=== PATIENT | male | born 1975 | race Caucasian/White ===

== ENCOUNTER 2019-10-12 17:07 | Inpatient (IN) | payer SELFPAY ==
--- NOTE | ~2019-10-12 | CT_ITS ---
EXAMINATION: CT abdomen pelvis wo con DATE: 10/12/2019 17:45 INDICATION: Left lower quadrant abdominal pain TECHNIQUE: Computed tomography (CT) of the abdomen and pelvis was performed without intravenous contr ast. The dose-length product was 1054.19 mGy-cm. Automated exposure control and iterative reconstruct ion technique were employed. COMPARISON: None. FINDINGS: Lung bases are unremarkable. No significant pleural or pericardial effusion. Heart size is normal. No significant vascular abnormality. No lymphadenopathy. There is a fat-containing right ingu inal hernia. There is thickening with surrounding phlegmonous change involving the descending colon, compatible wi th acute diverticulitis. No evidence for perforation or abscess. Tiny fat-containing umbilical hernia . No bowel obstruction. No free air or free fluid. The liver, spleen, pancreas, adrenal glands and kidneys are unremarkable. Gallbladder is present. IMPRESSION: 1. Acute uncomplicated diverticulitis descending colon. Reviewed, dictated and finalized at location A.
[2019-10-12 17:13] VITALS: BP 135/94; PULSE 108; RESP 16; TEMP 36.6; O2SAT 99
--- NOTE | 2019-10-12 17:18 | ED.ABDPAIN ---
HPI - Abdominal Pain General Chief Complaint: Abdominal Pain Stated Complaint: Abd Pain Time Seen by Provider: 10/12/19 17:15 Source: patient Mode of arrival: ambulatory Limitations: no limitations History of Present Illness HPI narrative: A 44 y/o male presents to the ED with c/o LLQ ABD pain. Pt states that the LLQ ABD pain started 2 days ago and worsened today. He notes that he has a PMHx of diverticulitis and this feels similar. Pt reports nausea, fever, and blurred vision, but denies vomiting and diarrhea. He has no other complaints at this time. MD elicited complaint: abdominal pain (LLQ) Pertinent past history: diverticulitis Onset (ago): day(s) (2) Pain Consistency: other (Worsening) Location: LLQ Severity: similar to previous episodes Context: confirms history of similar episodes Associated symptoms: nausea, fever and other (Blurred vision) Related Data Home Medications Medication Instructions Recorded Confirmed No Home Medications 10/12/19 10/12/19 Allergies Allergy/AdvReac Type Severity Reaction Status Date / Time ciprofloxacin [From Cipro] Allergy Swelling Verified 10/12/19 17:57 shellfish derived Allergy Swelling Verified 10/12/19 17:57 Review of Systems Review of Systems: All systems reviewed & are unremarkable except as noted in HPI and below Constitutional: Constitutional: Reports fever(s) Eyes: Eyes: Reports blurry vision Gastrointestinal: Gastrointestinal: Reports abdominal pain (LLQ), Denies diarrhea, Reports nausea and Denies vomiting PMFSH Past Medical History Medical History (Updated 10/12/19 @ 18:23 by Seng Carlton DO) Diverticulitis Surgical History Surgical History (Updated 10/12/19 @ 17:35 by Arabella Cm) History of arthroscopic procedure on shoulder Right History of umbilical hernia repair Social History Social History (Updated 10/12/19 @ 17:33 by Arabella Cm) Smoking status: Never smoker Exam Narrative: Exam Narrative: APPEARANCE: No acute distress, nontoxic, resting in bed HEENT: Normocephalic, atraumatic, OMM RESPIRATORY: No respiratory distress, clear to auscultation bilaterally with no rhonchi wheezing or rales CARDIOVASCULAR: RRR s murmur ABDOMINAL: Soft, nondistended, tender palpation left lower quadrant right lower quadrant left upper quadrant, no rebound or guarding MUSCULOSKELETAl: Moves all extremities. No clubbing, cyanosis or edema. NEURO: Awake and alert. Following commands, speech normal, no focal deficits SKIN:: Warm, dry. Normal Color PSYCHIATRIC: Normal affect/mood Course Course Emergency Course: Discussed with EULOGIO Lund presentation work-up. Agrees with admission at this time Discussed with patient and family results of workup and diagnosis. Discussed need for admission. Patient and family understand and agree to current treatment plan Vital Signs Vital signs: Vital Signs Temperature 97.9 F 10/12/19 17:13 Pulse Rate 108 H 10/12/19 17:13 Respiratory Rate 16 10/12/19 17:13 Blood Pressure 135/94 H 10/12/19 17:13 Pulse Oximetry 99 10/12/19 17:13 Temperature 97.9 F 10/12/19 17:13 Pulse Rate 108 H 10/12/19 17:13 Respiratory Rate 16 10/12/19 17:13 Blood Pressure 135/94 H 10/12/19 17:13 Pulse Oximetry 99 10/12/19 17:13 MDM - Abdominal Pain Lab Data Result diagrams: 10/12/19 17:31 10/12/19 17:31 Labs: Lab Results 10/12/19 10/12/19 10/12/19 Range/Units 17:31 17:31 17:31 WBC 10.6 H (4.5-10.0) K/mm3 RBC 5.61 (4.6-6.20) M/mm3 Hgb 15.8 (14.0-18.0) g/dL Hct 45.9 (42.0-52.0) % MCV 81.8 (80-100) fl MCH 28.2 (26-34) pg MCHC 34.4 (32-36) g/dl RDW 13.3 (11.5-14.5) % Plt Count 150 (150-375) k/mm3 MPV 13.2 H (7.4-10.4) fl Immature Gran % (Auto) 0.2 (0-0.5) % Neut % (Auto) 78.1 H (45.5-73.1) % Lymph % (Auto) 13.4 L (18.3-44.2) % [place] % (Auto) 7.0 (2.6-8.5) % Eos % (Auto) 0.9 (0-4.4) % Baso
[2019-10-12 17:44] LABS: Basophils Percent Auto 0.4 % (0.2-1.2); Eosinophils Absolute Auto 0.1 K/mm3 (0-0.3); Eosinophils Percent Auto 0.9 % (0-4.4); Hematocrit 45.9 % (42.0-52.0); Hemoglobin 15.8 g/dL (14.0-18.0); Immature Granulocyte Absolute 0.02 K/mm3 (0.00-0.031); Immature Granulocyte Percent A 0.2 % (0-0.5); Immature Platelet Fraction Pct 20.6 % (0.9-11.2); Lymphocytes Absolute Auto 1.43 K/mm3 (0.9-3.2); Lymphocytes Percent Auto 13.4 % (18.3-44.2); Mean Corpuscular HGB Conc 34.4 g/dl (32-36); Mean Corpuscular Hemoglobin 28.2 pg (26-34); Mean Corpuscular Volume 81.8 fl (80-100); Mean Platelet Volume 13.2 fl (7.4-10.4); Monocytes Absolute Auto 0.7 K/mm3 (0.1-0.6); Neutrophils Absolute Auto 8.3 K/mm3 (1.3-6.7); Neutrophils Percent Auto 78.1 % (45.5-73.1); Platelet Count Result 150 k/mm3 (150-375); Red Blood Count 5.61 M/mm3 (4.6-6.20); Red Cell Distribution Width 13.3 % (11.5-14.5); White Blood Count 10.6 K/mm3 (4.5-10.0)
[2019-10-12 17:45] LABS: Add Urine Microscopic? YES; Appearance Urine Clear (Clear); Bilirubin Urine Negative (Negative); Blood Urine Negative (Negative); Color Urine Yellow (Yellow); Glucose Urine UA Negative (Negative); Ketones Urine Trace mg/dL (Negative); Leukocyte Esterase Ur Negative LEU/UL (Negative); Mucus Urine Rare /lpf; Nitrate Urine Negative (Negative); Protein Urine Negative (Negative); RBC Urine 0-2 /hpf (0-2); Urobilinogen Urine Negative mg/dL (<2.0); WBC Urine 0-3 /hpf
[2019-10-12 17:52] LABS: Prothrombin Time 12.7 Seconds (11.1-14.7)
[2019-10-12 17:53] LABS: Alanine Aminotransferase 25 U/L (4-50); Albumin Level 4.9 g/dL (3.5-5.1); Alkaline Phosphatase 69 U/L (38-126); Aspartate Amino Transferase 26 U/L (17-59); Bilirubin,Total 0.8 mg/dL (0.2-1.3); Blood Urea Nitrogen 13 mg/dL (9-20); Calcium 9.7 mg/dL (8.4-10.2); Carbon Dioxide 24 mmol/L (22-30); Chloride 102 mmol/L (98-107); Estimated CRCL calculation 118 ml/min; Estimated Glomerular Filt Rate > 60; Glucose 98 mg/dL (75-110); Lipase 439 U/L (23-300); Potassium 3.8 mmol/L (3.4-5.0); Sodium 137 mmol/L (137-145)
[2019-10-12 17:54] LABS: Lactic Acid Reflex 0.8 mmol/L (0.7-2.1)
[2019-10-12] MEDS: KETOROLAC 30 MG/ML VIAL (*BKC) IV PUSH (17:59)
[2019-10-12] MEDS: ONDANSETRON INJ 4 MG/2 ML VIAL IV PUSH (17:59)
[2019-10-12 18:00] LABS: Partial Thromboplastin Time 28.9 SECONDS (22.3-36.8)
[2019-10-12] MEDS: LACTATED RINGERS 1,000 ML 999 ML IV CONT (18:00)
[2019-10-12] MEDS: LACTATED RINGERS 1,000 ML 125 ML IV CONT (18:58)
[2019-10-12] MEDS: MORPHINE SULFATE 4 MG/ML INJ IV PUSH ×3 (18:58→23:05)
[2019-10-12 19:50] VITALS: BP 146/93; PULSE 71; RESP 18; TEMP 36.7; O2SAT 98; BMI 29.0
[2019-10-12 19:53] VITALS: BP 118/82; PULSE 62; RESP 18; O2SAT 99
--- NOTE | 2019-10-12 20:00 | ADMGEN ---
This patient, Ernie Sparks, was admitted to [facility] Room 329-01. Patient/family oriented to hospital policies and general routines including ID bracelet, bed and alarms, visiting hours, pain management, procedures, bathroom and other care routines, personal items, smoking policy, room service/diet, and visiting hours. Valuables list has been completed. Information on how to activate the Rapid Response Team has been discussed. Patient/Family are encouraged to report perceived risks to care and to ask questions if they do not understand what they are told or what they should do.
[2019-10-12 22:00] VITALS: BP 126/76; PULSE 62; RESP 18; TEMP 36.6; O2SAT 97
--- NOTE | 2019-10-13 00:05 | PM.IMHP ---
H&P: HPI History of Present Illness Chief complaint: Abdominal pain Narrative: Date and time of patient contact: 10/13/2019 just after midnight Ernie Sparks is a 44 year old male with a past medical history of bilateral inguinal hernia repair and multiple episodes of diverticulitis who presented to the ER via private vehicle for diverticulitis. The patient is currently traveling from [place] through [place] on his way to [place], [place] to recall locate and find a new job. He states that he began having pain 2 days ago. His pain is in his lower abdomen and is dull and burning in sensation and is similar to his prior episodes of diverticulitis.. It is currently a 7/10 in intensity. The pain will occasionally be sharp and stabbing crampy. It is made worse with walking or movement. He reports some mild decreased appetite. He has had some mild nausea but no vomiting. He has had some subjective fever with chills and sweats. He has not noticed any hematochezia or melena. He has had normally formed bowel movements with his last bowel movement was today and was normally formed. He denies any hematochezia or melena. The patient's last episode of diverticulitis was about a year ago. He has had a total of fiber 6 episodes of diverticulitis over the last 10 years or so. He reports that he has noticed more foods cause him to be gassy or bloated. He does take a probiotic. He also takes Metamucil on a daily basis. He has been trying to eat a higher fiber diet. 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 He reports that he needs to have a shoulder replacement but the surgeons do not on perform the surgery due to his age. Review of Systems Review of Systems: Narrative: Except as documented in the HPI, all other systems were reviewed and are negative. [facility] Past Medical History Medical History (Updated 10/13/19 @ 00:47 by Tia Lamas DO) Diverticulitis Kidney stones Psoriasis Surgical History Surgical History (Updated 10/13/19 @ 00:47 by Tia Lamas DO) History of arthroscopic procedure on shoulder Left History of bilateral inguinal hernia repair History of colonoscopy with polypectomy 1994 and 1990 Family History Family History Father Diabetes mellitus Social History Social History (Updated 10/13/19 @ 00:51 by Tia Lamas, DO) Smoking status: Never smoker Alcohol intake: never Alcohol use details: He never drink alcohol to excess but did drink on occasion prior to all his episodes of diverticulitis. Substance use: never Living arrangements: alone Additional living arrangements comments: The patient is from [address] He recently left [place] and traveled to [place] to visit a friend. He is now driving down to [facility] to relocate. He plans on going to the [employer] and finding a new profession. 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 He stopped working in restaurants due to arthritis in his shoulder. Spiritual care concerns: No Agree to blood products: Yes Meds Home Medications and Allergies Home Medications Medication Instructions Recorded Confirmed Type No Home Medications 10/12/19 10/12/19 History Allergies Allergy/AdvReac Type Severity Reaction Status Date / Time ciprofloxacin [From Cipro] Allergy Severe Swelling Verified 10/12/19 20:23 shellfish derived Allergy Severe Swelling Verified 10/12/19 20:23 of Lip/Tongue/Throat Vital Signs Vital Signs - 24 hr 10/12/19 17:13 10/12/19 19:50 10/12/19 19:53 Temperature 97.9 F 98.1 F Pulse Rate 108 H 71 62 Respiratory Rate 16 18 18 Blood Pressure 135/94 H 146/93 H 118/82 Pulse Oximetry 99 98 99 10/12/19 22:00 Temperature 97.9 F Pulse Rate 62 Respiratory Rate 18 Blood Pressure 1
[2019-10-13] MEDS: HYDROMORPHONE HCL 1 MG/ML INJ 0.5 MG IV PUSH ×4 (01:09→11:47)
[2019-10-13] MEDS: LACTATED RINGERS 1,000 ML 125 ML IV CONT (03:42)
[2019-10-13 06:00] VITALS: BP 120/73; PULSE 59; RESP 18; TEMP 36.6; O2SAT 98
[2019-10-13 06:45] LABS: Basophils Percent Auto 0.6 % (0.2-1.2); Eosinophils Absolute Auto 0.3 K/mm3 (0-0.3); Eosinophils Percent Auto 5.3 % (0-4.4); Hematocrit 40.7 % (42.0-52.0); Hemoglobin 13.5 g/dL (14.0-18.0); Immature Granulocyte Absolute 0.02 K/mm3 (0.00-0.031); Immature Granulocyte Percent A 0.3 % (0-0.5); Immature Platelet Fraction Pct 18.3 % (0.9-11.2); Lymphocytes Absolute Auto 1.57 K/mm3 (0.9-3.2); Lymphocytes Percent Auto 24.3 % (18.3-44.2); Mean Corpuscular HGB Conc 33.2 g/dl (32-36); Mean Corpuscular Hemoglobin 28.2 pg (26-34); Mean Platelet Volume 12.8 fl (7.4-10.4); Monocytes Absolute Auto 0.6 K/mm3 (0.1-0.6); Monocytes Percent Auto 9.9 % (2.6-8.5); Neutrophils Absolute Auto 3.9 K/mm3 (1.3-6.7); Neutrophils Percent Auto 59.6 % (45.5-73.1); Platelet Count Result 128 k/mm3 (150-375); Red Blood Count 4.79 M/mm3 (4.6-6.20); Red Cell Distribution Width 13.5 % (11.5-14.5); White Blood Count 6.5 K/mm3 (4.5-10.0)
[2019-10-13 07:02] LABS: Alanine Aminotransferase 19 U/L (4-50); Albumin Level 3.9 g/dL (3.5-5.1); Alkaline Phosphatase 45 U/L (38-126); Aspartate Amino Transferase 21 U/L (17-59); Bilirubin,Total 1.1 mg/dL (0.2-1.3); Blood Urea Nitrogen 15 mg/dL (9-20); Calcium 8.8 mg/dL (8.4-10.2); Carbon Dioxide 29 mmol/L (22-30); Chloride 101 mmol/L (98-107); Estimated CRCL calculation 93 ml/min; Estimated Glomerular Filt Rate > 60; Glucose 92 mg/dL (75-110); Potassium 3.8 mmol/L (3.4-5.0); Sodium 135 mmol/L (137-145)
[2019-10-13] MEDS: ENOXAPARIN 40 MG/0.4 ML SYRINGE SUB-Q (08:06)
[2019-10-13] MEDS: ONDANSETRON INJ 4 MG/2 ML VIAL IV PUSH (11:55)
[2019-10-13] MEDS: IBUPROFEN IV 800 MG/200 ML 800 MG/200 ML BAG 400 MG IVPB ×2 (14:25→21:57)
[2019-10-13 14:49] VITALS: BP 111/63; PULSE 67; RESP 16; TEMP 36.9; O2SAT 98
--- NOTE | 2019-10-13 14:59 | PM.CNGS ---
Assessment and Plan Assessment and plan (1) Diverticulitis large intestine: Code(s): K57.32 - Diverticulitis of large intestine without perforation or abscess without bleeding Status: Acute Assessment and Plan: CT scan reviewed and discussed with the patient. He has evidence of acute diverticulitis in the descending colon without signs of perforation or abscess. WBC normal today and he is afebrile. Would continue IV antibiotics, analgesics, and IV fluids. Clear liquids are okay but I would take it slow on advancing his diet since he is still having some pain and is significantly tender on exam. I discussed with the patient that there is no surgical indication at this time, but with him having multiple episodes that are becoming more frequent, that he should establish care with a PCP once he is settled in [place] and could consider surgery referral to discuss an elective colon resection. We discussed the pathophysiology of this disease process and how it can progress. The patient would need to continue a low fiber diet for a few weeks after discharge and then change to a high fiber diet after that if asymptomatic. He reports understanding the dietary restrictions due to previous episodes. Since there is no surgical indication at this time, we will sign off and only monitor peripherally. If you need anything in the future, please do not hesitate to let us know. Thank you for allowing me to evaluate the patient in consultation Additional Plan I discussed the patient's case and plan of care with Dr. Santillan today. History of Present Illness Consult details Consult date: 10/13/19 Reason for consult: other (Acute uncomplicated diverticulitis) Requesting physician: Stpehen Meza PA-C Narrative: This is a 44-year-old male with a history of diverticulitis in the past, who presented to the emergency department yesterday with complaints of left lower quadrant abdominal pain. The patient reports having about 5-6 episodes of diverticulitis since 2010 that have required hospitalization all but on one occasion. The patient reports the last time he was hospitalized for diverticulitis was about 1 year ago. He denies recalling having a perforation or abscess during his past episodes. He reports also having episodes of lower abdominal pain about once every few months that occurs at home and he will make himself NPO for a few days and slowly advance his diet to clear liquids and then a low fiber diet, which typically resolves the pain. He reports that this episode of abdominal pain started about 2 days ago when he first noticed left lower quadrant abdominal pain that started to radiate also to the right lower quadrant. The pain continued to worsen and he felt that he had a subjective fever yesterday, therefore he presented to the emergency department for further evaluation. He states the pain is similar to previous episodes. CT scan of the abdomen and pelvis showed acute uncomplicated diverticulitis of the descending colon. Labs revelaed a white blood cell count of 10,600, otherwise were unremarkable. The patient has been afebrile since admission. He was admitted to the Hospitalist service and started on IV Zosyn, analgesics, and IV fluids. He was started on a clear liquid diet. Our service has now been consulted for the acute diverticulitis. The patient is being seen on the medical floor. He reports still having abdominal pain at rest in the left lower quadrant and suprapubic region, rating this at about a 7/10 on a pain scale. He reports having associated nausea prior to admission, but states this has subsided. Denies vomiting, bloating, or changes in his bowel habits. Reports flatus today and his last bowel movement was yesterday. He states it was formed and has not noted any blood in his stool. Also to note, the patient is currently traveling to move to [place]. He is originally from [place], [place] and is traveling to [place] to relocate. He reports that he has had o
--- NOTE | 2019-10-13 15:14 | PM.IMPN ---
Progress Note: A&P Assessment and Plan (1) Diverticulitis of sigmoid colon: Code(s): K57.32 - Diverticulitis of large intestine without perforation or abscess without bleeding Status: Deleted Assessment and Plan: Patient has been reporting improvements. Uncomplicated per CT scan. Pain still requiring IV pain meds, but patient states this is improving General Surgery has been consulted and appreciate recommendations Continue IV Zosyn for now Will reduce IV dilaudid to .25 mg Q3 hrs PRN for severe pain, ibuprofen 800 mg Q6 PRN for mod pain, and tylenol 650 mg Q6 PRN for mild pain. Consider advancing diet tomorrow or next day depending on clinical status Plan to discharge on oral cipro/flagyl to complete a 10 day course antibiotics Patient will need to establish with a PCP and possible referral to General Surgeon once moved down to [place] for follow up and further management of diverticulitis. Monitor Subjective Date/time seen: 10/13/19 15:14 Interval history: Patient is a 44 yo M with history of bilateral inguinal hernia repair and multiple episodes of diverticulitis who is here for treatment for uncomplicated diverticulitis. Patient states his pain has been improving since admission, but still requiring IV dilaudid for pain relief. His pain is mainly LLQ, but sometimes radiates to right. No n/v. Tolerating CLD so far. He has a slight headache today, but otherwise has no other complaints. Currently denies subjective f/c/ns, cp/palpitations, sob/cough, n/v/d/c, melena, brbpr, dysuria, hematuria, cloudy urine, calf pain/swelling. Review of Systems Review of Systems: All systems reviewed & are unremarkable except as noted in HPI and below Exam Narrative: Exam Narrative: Patient lying supine in bed at time of visit Const: General: cooperative, comfortable, no acute distress, well developed and alert Nutritional Appearance: well nourished Orientation/consciousness: patient oriented x3 HENMT: Head: normocephalic and atraumatic General nose exam: Normal nares present Face and sinus: face symmetric Mouth: Yes moist mucous membranes Teeth and gingiva: dentition normal Throat: posterior oropharynx normal and uvula midline Eyes: General: appearance normal, both eyes and all related structures Sclera: sclerae normal Pupils: Equal, round and reactive pupils present EOM: EOMs intact bilaterally Neck: Neck: trachea midline and supple Resp: Effort & Inspection: normal respiratory effort Auscultation: clear to auscultation bilaterally Cardio: Rate: regular rate Rhythm: regular rhythm Heart sounds: no murmurs GI: Inspection: non-distended and no scars (no visible scars) GI Palp: Yes abdominal tenderness (LLQ>RLQ) and Yes Soft to palpation Auscultation: normal bowel sounds and normoactive bowel sounds Skin: General skin exam: normal color and no rashes or lesions noted Neuro: General: patient oriented x3, moves all extremities and no focal motor deficits Speech: normal speech Motor exam (neuro): 5/5 motor strength present throughout Extrem: Right lower extremity: no edema Left lower extremity: no edema Other: NTTP b/l calves Psych: Mental Status: mental status grossly normal Affect: normal affect Objective Data Vital Signs Vital Signs: Vital Signs - 24 hr 10/12/19 17:13 10/12/19 19:50 10/12/19 19:53 Temperature 97.9 F 98.1 F Pulse Rate 108 H 71 62 Respiratory Rate 16 18 18 Blood Pressure 135/94 H 146/93 H 118/82 Pulse Oximetry 99 98 99 10/12/19 22:00 10/13/19 06:00 10/13/19 14:49 Temperature 97.9 F 97.8 F 98.4 F Pulse Rate 62 59 L 67 Respiratory Rate 18 18 16 Blood Pressure 126/76 120/73 111/63 Pulse Oximetry 97 98 98 Intake/Output Intake/Output: Intake & Output 10/10/19 10/11/19 10/12/19 10/13/19 23:59 23:59 23:59 23:59 Intake Total 1350 1775 Output Total 200 Balance 1350 1575 Meds/Results Medications: Active Medications Ge
[2019-10-13] MEDS: HYDROMORPHONE HCL 1 MG/ML INJ 0.25 MG IV PUSH ×3 (15:40→23:28)
[2019-10-13] MEDS: LACTATED RINGERS 1,000 ML 100 ML IV CONT (15:42)
[2019-10-13 22:00] VITALS: BP 115/69; PULSE 56; RESP 16; TEMP 36.5; O2SAT 98
[2019-10-14] MEDS: ONDANSETRON INJ 4 MG/2 ML VIAL IV PUSH ×3 (00:20→14:51)
[2019-10-14] MEDS: LACTATED RINGERS 1,000 ML 100 ML IV CONT ×2 (04:05→15:58)
[2019-10-14] MEDS: HYDROMORPHONE HCL 1 MG/ML INJ 0.25 MG IV PUSH ×5 (05:52→22:53)
[2019-10-14 06:00] VITALS: BP 120/70; PULSE 72; RESP 16; TEMP 36.6; O2SAT 99
[2019-10-14 06:01] LABS: Hematocrit 38.1 % (42.0-52.0); Hemoglobin 12.6 g/dL (14.0-18.0); Immature Platelet Fraction Pct 19.4 % (0.9-11.2); Mean Corpuscular HGB Conc 33.1 g/dl (32-36); Mean Corpuscular Hemoglobin 27.8 pg (26-34); Mean Corpuscular Volume 84.1 fl (80-100); Mean Platelet Volume 13.3 fl (7.4-10.4); Platelet Count Result 110 k/mm3 (150-375); Red Blood Count 4.53 M/mm3 (4.6-6.20); Red Cell Distribution Width 13.5 % (11.5-14.5)
[2019-10-14 06:18] LABS: Blood Urea Nitrogen 10 mg/dL (9-20); Calcium 8.6 mg/dL (8.4-10.2); Carbon Dioxide 27 mmol/L (22-30); Chloride 106 mmol/L (98-107); Estimated CRCL calculation 103 ml/min; Estimated Glomerular Filt Rate > 60; Glucose 91 mg/dL (75-110); Magnesium 2.2 mg/dL (1.6-2.3); Potassium 3.9 mmol/L (3.4-5.0); Sodium 137 mmol/L (137-145)
[2019-10-14] MEDS: IBUPROFEN IV 800 MG/200 ML 800 MG/200 ML BAG 400 MG IVPB ×2 (08:29→17:14)
[2019-10-14] MEDS: ENOXAPARIN 40 MG/0.4 ML SYRINGE SUB-Q (08:32)
--- NOTE | 2019-10-14 10:18 | PM.IMPN ---
Progress Note: A&P Assessment and Plan (1) Diverticulitis of sigmoid colon: Code(s): K57.32 - Diverticulitis of large intestine without perforation or abscess without bleeding Status: Deleted Assessment and Plan: Patient has been reporting improvements in LLQ, now having RLQ pain and epigastric pain. I feel appendicitis, pancreatitis, cholecystitis, bowel obstruction or renal stone all unlikely; still possible pain from diverticulitis. Uncomplicated diverticulitis per CT scan. Pain still requiring IV pain meds. General Surgery has been consulted and has signed off as patient stable without need for immediate surgery at this moment; appreciate recommendations Continue IV Zosyn for now Patient comfortable with IV dilaudid to .25 mg Q3 hrs PRN for severe pain, ibuprofen 800 mg Q6 PRN for mod pain, and tylenol 650 mg Q6 PRN for mild pain for now. He wishes to take advancing his diet slow again today. Consider advancing diet tomorrow or next day depending on clinical status Will order Lipase, but again pancreatitis unlikely Trend CMP tomorrow Bisacodyl one time dose Plan to discharge on oral cipro/flagyl to complete a 10 day course antibiotics Patient will need to establish with a PCP and possible referral to General Surgeon once moved down to [place] for follow up and further management of diverticulitis. Monitor Subjective Date/time seen: 10/14/19 10:18 Interval history: Patient is a 44 yo M with history of bilateral inguinal hernia repair and multiple episodes of diverticulitis who is here for treatment for uncomplicated diverticulitis. Patient states his LLQ pain has been improving since admission, but still requiring IV dilaudid for pain relief. He now is noting RLQ pain this morning; its periumbilical and moves to RLQ; vague on other descriptors. He also now notes epigastric pain that radiates to his back; also vague on descriptors. He states his pain is 10/10 this morning, but now down to 7/10; pain in the RLQ is worse. No n/v, but has not had his CLD this morning yet and may hold on further PO. He has a slight headache today and a sore throat. Otherwise has no other complaints. He was last in [facility] back in August, then to [place], then to [place] most recently, but notes that no other sick contacts that he was aware of. No respiratory symptoms or subjective fevers. Currently denies subjective cp/palpitations, sob/cough, n/v/d/c, melena, brbpr, dysuria, hematuria, cloudy urine, calf pain/swelling. Review of Systems Review of Systems: All systems reviewed & are unremarkable except as noted in HPI and below Exam Narrative: Exam Narrative: Patient lying supine in bed at time of visit Const: General: cooperative, comfortable, no acute distress, well developed and alert Nutritional Appearance: well nourished Orientation/consciousness: patient oriented x3 HENMT: Head: normocephalic and atraumatic General nose exam: Normal nares present Face and sinus: face symmetric Mouth: Yes moist mucous membranes Teeth and gingiva: dentition normal Throat: posterior oropharynx normal and uvula midline Eyes: General: appearance normal, both eyes and all related structures EOM: EOMs intact bilaterally Neck: Neck: trachea midline and supple Resp: Effort & Inspection: normal respiratory effort Auscultation: clear to auscultation bilaterally Cardio: Rate: regular rate Rhythm: regular rhythm Heart sounds: no murmurs GI: Inspection: non-distended and no scars (no visible scars) GI Palp: Yes abdominal tenderness (RLQ>epigastric>LLQ) and Yes Soft to palpation Auscultation: normal bowel sounds and normoactive bowel sounds Skin: General skin exam: normal color and no rashes or lesions noted Neuro: General: patient oriented x3, moves all extremities and no focal motor deficits Cranial nerves: Yes Equal, round and reactive pupils present Speech: normal speech Motor exam (neuro
[2019-10-14] MEDS: BISACODYL 5 MG TABLET EC PO (10:38)
[2019-10-14 11:41] LABS: Lipase 119 U/L (23-300)
[2019-10-14 14:00] VITALS: BP 123/67; PULSE 77; RESP 18; TEMP 36.9; O2SAT 98
[2019-10-14] MEDS: ACETAMINOPHEN 325 MG TABLET 650 MG PO (20:45)
[2019-10-14 22:00] VITALS: BP 137/85; PULSE 60; RESP 16; TEMP 36.7; O2SAT 98
[2019-10-15] MEDS: IBUPROFEN IV 800 MG/200 ML 800 MG/200 ML BAG 400 MG IVPB (01:43)
[2019-10-15] MEDS: LACTATED RINGERS 1,000 ML 100 ML IV CONT (03:07)
[2019-10-15] MEDS: HYDROMORPHONE HCL 1 MG/ML INJ 0.25 MG IV PUSH ×3 (03:07→20:10)
[2019-10-15 06:00] VITALS: BP 105/62; PULSE 51; RESP 16; TEMP 36.6; O2SAT 96
[2019-10-15 06:20] LABS: Hematocrit 35.5 % (42.0-52.0); Hemoglobin 11.8 g/dL (14.0-18.0); Mean Corpuscular HGB Conc 33.2 g/dl (32-36); Mean Corpuscular Hemoglobin 28.2 pg (26-34); Mean Corpuscular Volume 84.9 fl (80-100); Mean Platelet Volume 12.6 fl (7.4-10.4); Platelet Count Result 101 k/mm3 (150-375); Red Blood Count 4.18 M/mm3 (4.6-6.20); Red Cell Distribution Width 13.4 % (11.5-14.5); White Blood Count 5.2 K/mm3 (4.5-10.0)
[2019-10-15 06:33] LABS: Blood Urea Nitrogen 7 mg/dL (9-20); Calcium 8.2 mg/dL (8.4-10.2); Carbon Dioxide 27 mmol/L (22-30); Chloride 108 mmol/L (98-107); Estimated CRCL calculation 115 ml/min; Estimated Glomerular Filt Rate > 60; Glucose 93 mg/dL (75-110); Magnesium 2.1 mg/dL (1.6-2.3); Potassium 3.6 mmol/L (3.4-5.0); Sodium 137 mmol/L (137-145)
[2019-10-15] MEDS: POTASSIUM CHLORIDE 20 MEQ PACKET (FOR LIQUID) 40 MEQ PO (09:49)
[2019-10-15] MEDS: ENOXAPARIN 40 MG/0.4 ML SYRINGE SUB-Q (09:50)
--- NOTE | 2019-10-15 11:55 | PM.IMPN ---
Progress Note: A&P Assessment and Plan (1) Diverticulitis of sigmoid colon: Code(s): K57.32 - Diverticulitis of large intestine without perforation or abscess without bleeding Status: Deleted Assessment and Plan: Patient has been reporting improvements in LLQ and RLQ pain. Epigastric pain has resolved. I feel appendicitis, pancreatitis, cholecystitis, bowel obstruction or renal stone all unlikely; still possible pain from diverticulitis. Uncomplicated diverticulitis per CT scan. General Surgery has been consulted and has signed off as patient stable without need for immediate surgery at this moment; appreciate recommendations Continue IV Zosyn for now Patient comfortable with IV dilaudid to .25 mg Q3 hrs PRN for severe pain, [place] 5/325 Q6h PRN for mod pain, and tylenol 650 mg Q6 PRN for mild pain for now. Discussed the importance to try Tylenol first. He wishes to take advancing his diet to FLD today; will do this for dinner, then likely advance to soft tomorrow evening if still clinically improving Trend CMP tomorrow Plan to discharge on oral cipro/flagyl to complete a 10 day course antibiotics Patient will need to establish with a PCP and possible referral to General Surgeon once moved down to [place] for follow up and further management of diverticulitis. Monitor Subjective Date/time seen: 10/15/19 11:55 Interval history: Patient is a 44 yo M with history of bilateral inguinal hernia repair and multiple episodes of diverticulitis who is here for treatment for uncomplicated diverticulitis. Patient states his pain has improved today; he has been trying to control pain with non-opioid meds today. He is willing to try norco or tylenol today; dilaudid only as needed. He is willing to try FLD this evening; prefers FLD over CLD if he can. Currently denies subjective f/c/ns, cp/palpitations, sob/cough, n/v/d/c, brbpr, dysuria, hematuria, cloudy urine, calf pain/swelling. Review of Systems Review of Systems: All systems reviewed & are unremarkable except as noted in HPI and below Exam Narrative: Exam Narrative: Patient lying supine in bed at time of visit Const: General: cooperative, comfortable, no acute distress, well developed and alert Nutritional Appearance: well nourished Orientation/consciousness: patient oriented x3 HENMT: Head: normocephalic and atraumatic General nose exam: Normal nares present Face and sinus: face symmetric Mouth: Yes moist mucous membranes Teeth and gingiva: dentition normal Throat: posterior oropharynx normal and uvula midline Eyes: General: appearance normal, both eyes and all related structures Sclera: sclerae normal Pupils: Equal, round and reactive pupils present EOM: EOMs intact bilaterally Neck: Neck: trachea midline and supple Resp: Effort & Inspection: normal respiratory effort Auscultation: clear to auscultation bilaterally Cardio: Rate: regular rate Rhythm: regular rhythm Heart sounds: no murmurs GI: Inspection: non-distended and no scars (no visible scars) GI Palp: Yes abdominal tenderness (lower abdomen, mild) and Yes Soft to palpation Auscultation: normal bowel sounds and normoactive bowel sounds Skin: General skin exam: normal color and no rashes or lesions noted Neuro: General: patient oriented x3, moves all extremities and no focal motor deficits Cranial nerves: Yes Equal, round and reactive pupils present Speech: normal speech Motor exam (neuro): 5/5 motor strength present throughout Extrem: Right lower extremity: no edema Left lower extremity: no edema Other: NTTP b/l calves Psych: Mental Status: mental status grossly normal Affect: normal affect Objective Data Vital Signs Vital Signs: Vital Signs - 24 hr 10/14/19 14:00 10/14/19 22:00 10/15/19 06:00 Temperature 98.4 F 98.1 F 97.8 F Pulse Rate 77 60 51 L Respiratory Rate 18 16 16 Blood Pressure 123/67 137/85 105/62 Pulse Oximetry 98 98 96 Intake/O
[2019-10-15] MEDS: ONDANSETRON INJ 4 MG/2 ML VIAL IV PUSH (12:34)
[2019-10-15 14:00] VITALS: BP 139/77; PULSE 58; RESP 14; TEMP 36.5; O2SAT 99
[2019-10-15 22:00] VITALS: BP 134/89; PULSE 52; RESP 16; TEMP 36.7; O2SAT 100
[2019-10-16 06:00] VITALS: BP 106/68; PULSE 54; RESP 16; TEMP 36.5; O2SAT 95
[2019-10-16 06:16] LABS: Hematocrit 35.3 % (42.0-52.0); Hemoglobin 11.7 g/dL (14.0-18.0); Immature Platelet Fraction Pct 18.7 % (0.9-11.2); Mean Corpuscular HGB Conc 33.1 g/dl (32-36); Mean Corpuscular Hemoglobin 28.1 pg (26-34); Mean Corpuscular Volume 84.9 fl (80-100); Platelet Count Result 116 k/mm3 (150-375); Red Blood Count 4.16 M/mm3 (4.6-6.20); Red Cell Distribution Width 13.2 % (11.5-14.5); White Blood Count 4.6 K/mm3 (4.5-10.0)
[2019-10-16 06:32] LABS: Blood Urea Nitrogen 6 mg/dL (9-20); Calcium 8.6 mg/dL (8.4-10.2); Carbon Dioxide 26 mmol/L (22-30); Chloride 107 mmol/L (98-107); Estimated CRCL calculation 115 ml/min; Estimated Glomerular Filt Rate > 60; Glucose 99 mg/dL (75-110); Magnesium 2.3 mg/dL (1.6-2.3); Potassium 3.9 mmol/L (3.4-5.0); Sodium 138 mmol/L (137-145)
[2019-10-16] MEDS: ENOXAPARIN 40 MG/0.4 ML SYRINGE SUB-Q (08:40)
--- NOTE | 2019-10-16 11:37 | PM.IMPN ---
Progress Note: A&P Assessment and Plan (1) Diverticulitis of sigmoid colon: Code(s): K57.32 - Diverticulitis of large intestine without perforation or abscess without bleeding Status: Deleted Assessment and Plan: Patient has been reporting improvements in LLQ and RLQ pain again today. Epigastric pain has resolved. I feel appendicitis, pancreatitis, cholecystitis, bowel obstruction or renal stone all unlikely; still possible pain from diverticulitis. Uncomplicated diverticulitis per CT scan. General Surgery has been consulted and has signed off as patient stable without need for immediate surgery at this moment; appreciate recommendations Continue IV Zosyn for now Will do [place] 5/325 Q6h PRN for severe pain, and tylenol 650 mg Q6h PRN for mod pain, and tylenol 325 mg Q6h PRN for now. Discussed the importance to try Tylenol first again today He is open to advancing diet to soft/low fiber for dinner today. Will see if he is tolerating this tomorrow and possible doing level Trend CMP tomorrow Plan to discharge on oral cipro/flagyl to complete a 10-14 day course antibiotics Patient will need to establish with a PCP and possible referral to General Surgeon once moved down to [place] for follow up and further management of diverticulitis. Monitor Subjective Date/time seen: 10/16/19 11:37 Interval history: Patient is a 44 yo M with history of bilateral inguinal hernia repair and multiple episodes of diverticulitis who is here for treatment for uncomplicated diverticulitis. Patient states his pain has improved again today; he is open to titrating his pain medications down today. No n/v today. Walking around today. No other complaints today. He is willing to try soft/low fiber diet this evening. Currently denies subjective f/c/ns, cp/palpitations, sob/cough, n/v/d/c, brbpr, dysuria, hematuria, cloudy urine, calf pain/swelling. Review of Systems Review of Systems: All systems reviewed & are unremarkable except as noted in HPI and below Exam Narrative: Exam Narrative: Patient lying supine in bed at time of visit Const: General: cooperative, comfortable, no acute distress, well developed and alert Nutritional Appearance: well nourished Orientation/consciousness: patient oriented x3 HENMT: Head: normocephalic and atraumatic General nose exam: Normal nares present Face and sinus: face symmetric Mouth: Yes moist mucous membranes Teeth and gingiva: dentition normal Throat: posterior oropharynx normal and uvula midline Eyes: General: appearance normal, both eyes and all related structures Sclera: sclerae normal Pupils: Equal, round and reactive pupils present EOM: EOMs intact bilaterally Neck: Neck: trachea midline and supple Resp: Effort & Inspection: normal respiratory effort Auscultation: clear to auscultation bilaterally Cardio: Rate: regular rate Rhythm: regular rhythm Heart sounds: no murmurs GI: Inspection: non-distended and no scars (no visible scars) GI Palp: No abdominal tenderness and Yes Soft to palpation Auscultation: normal bowel sounds and normoactive bowel sounds Skin: General skin exam: normal color and no rashes or lesions noted Neuro: General: patient oriented x3, moves all extremities and no focal motor deficits Cranial nerves: Yes Equal, round and reactive pupils present Speech: normal speech Motor exam (neuro): 5/5 motor strength present throughout Extrem: Right lower extremity: no edema Left lower extremity: no edema Other: NTTP b/l calves Psych: Mental Status: mental status grossly normal Affect: normal affect Objective Data Vital Signs Vital Signs: Vital Signs - 24 hr 10/15/19 14:00 10/15/19 22:00 10/16/19 06:00 Temperature 97.7 F 98.0 F 97.7 F Pulse Rate 58 L 52 L 54 L Respiratory Rate 14 16 16 Blood Pressure 139/77 134/89 106/68 Pulse Oximetry 99 100 95 Intake/Output Intake/Output: Intake & Output 10/13/19 10/14/19
[2019-10-16 14:00] VITALS: BP 129/94; PULSE 57; RESP 16; TEMP 36.5; O2SAT 99
[2019-10-16] MEDS: ACETAMINOPHEN 325 MG TABLET 650 MG PO (19:40)
[2019-10-16 22:00] VITALS: BP 139/83; PULSE 58; RESP 20; TEMP 36.9; O2SAT 98
[2019-10-17 06:00] VITALS: BP 124/78; PULSE 61; RESP 20; TEMP 36.9; O2SAT 96
[2019-10-17 06:52] LABS: Blood Urea Nitrogen 8 mg/dL (9-20); Calcium 8.6 mg/dL (8.4-10.2); Carbon Dioxide 24 mmol/L (22-30); Estimated CRCL calculation 103 ml/min; Estimated Glomerular Filt Rate > 60; Glucose 94 mg/dL (75-110)
[2019-10-17 07:54] LABS: Chloride 109 mmol/L (98-107); Sodium 139 mmol/L (137-145)
[2019-10-17 09:02] LABS: Hemoglobin 13.7 g/dL (14.0-18.0); Immature Platelet Fraction Pct 20.3 % (0.9-11.2); Mean Corpuscular HGB Conc 33.4 g/dl (32-36); Mean Corpuscular Hemoglobin 28.3 pg (26-34); Mean Corpuscular Volume 84.7 fl (80-100); Mean Platelet Volume 13.5 fl (7.4-10.4); Platelet Count Result 126 k/mm3 (150-375); Red Blood Count 4.84 M/mm3 (4.6-6.20); White Blood Count 5.1 K/mm3 (4.5-10.0)
--- NOTE | 2019-10-17 10:20 | PM.DS ---
DS: Diagnosis Admitting Diagnosis Admitting Diagnosis: Diverticulitis of large intestine without perforation or abscess without bleeding Discharge Diagnosis (1) Diverticulitis of sigmoid colon: Code(s): K57.32 - Diverticulitis of large intestine without perforation or abscess without bleeding Status: Deleted Assessment and Plan: Uncomplicated diverticulitis per CT scan. Patient has been reporting improvements in LLQ (0-1/10) and RLQ (3/10) pain again today. I feel appendicitis, pancreatitis, cholecystitis, bowel obstruction or renal stone all unlikely; still possible pain from diverticulitis. General Surgery has been consulted and has signed off as patient stable without need for immediate surgery at this moment; appreciate recommendations Will continue on Augmentin and Flagyl for 9 days, already had 5 days of IV Zosyn. Will prescribe [place] 5/325 Q6h PRN for severe pain. Recommended Tylenol for less pain. He is tolerating a Low Fiber diet since dinner last night and breakfast this morning. Recommended Low Fiber diet for 2 weeks, then High fiber diet daily. Patient will need to establish with a PCP and possible referral to General Surgeon once moved down to [place] for follow up and further management of diverticulitis. The patient understands and agrees with the plan. All questions answered. DS: Summary Hospital Course Reason for hospitalization: The patient is a 44-year-old male with a history of bilateral inguinal hernia repair and multiple episodes of diverticulitis, who presented to the ER while driving through for increased abdominal pain for 2 days with associated fevers, chills, diaphoresis. He reported similar symptoms with his prior diverticulitis attacks in the past. Initial vitals showed temperature of 97.9?, blood pressure 135/94, heart rate 108, respiratory rate 16, oxygen saturation 99% on room air. Initial labs showed leukocytosis at 10,600, with a left shift, normal coag panel, normal CMP, lipase was 439. Normal urinalysis. CT abdomen pelvis showed acute uncomplicated diverticulitis to the descending colon. The patient was admitted into the hospital for IV antibiotics for diverticulitis, IV fluid hydration, slow diet advancement and general surgery consultation. General surgery recommended continued therapy with no need for acute intervention at this time. The patient continued improving over the next few days and he was able to tolerate a low-fiber diet without any issues. He was discharged on oral antibiotics for a total of 14 days of therapy, probiotics, and acid, and recommended to follow-up with a GI specialist once he gets down to [place]. The patient understands and agrees with the plan at this time. All questions answered. Status at Discharge Cognitive/behavioral status at discharge: Stable, improved. Time Spent with Patient Time attestation: Total time spent providing and/or coordinating discharge services: Time spent: Greater than 30 minutes Exam Narrative: Exam Narrative: General: 44-year-old man standing up looking out the window, then gets into bed without any difficulty or discomfort. Appears comfortable. In no acute distress. Skin: No jaundice or cyanosis. Good skin turgor. Neck: Full range of motion. Supple. Respiratory: Lungs are clear to auscultation bilaterally. No bony chest wall tenderness. Cardiovascular: The heart has a regular rate and rhythm without murmur. No carotid bruits. Lower extremities: No lower extremity edema. Distal pulses are easily palpated. No calf tenderness to palpation. Gastrointestinal: Slight RLQ and LLQ abdominal tenderness. No rebound or guarding. The abdomen is soft, and nondistended with active bowel sounds. Psychiatric: Lucid and oriented. Memory intact. Neurologic: No focal deficits. Speech is clear. No facial drooping. DS: Data Data Completed and [place]
== END 2019-10-17 13:05 | disposition home or self-care (01) | DRG 244 ==
LOC: ANHED 18:23 → ANH3MEDSUR 19:18
PROVIDERS: Physician Assistant; Admitting Provider Hospitalist; Emergency Provider Emergency Medicine; Visit Provider Hospitalist
DX: K57.32 Diverticulitis of large intestine without perforation or abscess without bleeding (principal); L40.9 Psoriasis, unspecified
CPT/HCPCS: 36415; 74176; 80048; 80053; 81001; 83605; 83690; 83735; 85025; 85027; 85055; 85610; 85730; 96361; 96365; 96366; 96367; 96372; 96375; 96376; 99285; A9270; G0378; G0379; J1170; J1650; J1741; J1885; J2270; J2405; J2543; J7120